=== PATIENT | male | born 1955 | race Caucasian/White ===

== ENCOUNTER → 2017-03-26 | Outpatient (CLI) | payer OTHER ==
[~2017-03-26] MED LIST: ACE325 PO; ALBU8.5H IH; AMOX-559 PO; CLON-327 PO; DOCO1CAP17; DOCU-416 PO; DUTA0.5C14 PO; FESO8PT PO; FURO20TA19 PO; IBU200 PO; IBUP-56 PO; IBUP600T22; LORA10CA3 PO; LOVAZA1PT GT; LOVAZA1PT PO; MECL-81 PO; MELA5TAB6 PO; METF-410; METFORMIN PO; MOMR; MOMR ENA; MULT-820 PO; OLME40TA3 PO; OMEG-11 PO; OXYB15TA17 PO; OXYC-865 PO; POTA10CA40 PO; PRED20TA6; ROS10 PO; ROSU5TAB8; SITA100T PO; TAMS0.4C25 PO; TAMS0.4C70 PO
== END ==
LOC: LAB 09:13
PROVIDERS: ATTEND Nurse Practitioner Family
DX: D75.1 Secondary polycythemia (principal)
CPT/HCPCS: 36415; 85014

== ENCOUNTER 2017-04-21 08:15 | Outpatient (RCR) | payer OTHER ==
--- NOTE | 2017-02-09 12:57 | PT INITIAL EVALUATION ---
MEDICAL DIAGNOSIS: Left TKA TREATMENT DIAGNOSIS: Left TKA DATE OF ONSET: 02/04/17 SUBJECTIVE: Pt is a 61 year-old male presenting to physical therapy s/p recent L TKA performed on 02/04/17. Pt reports that following the surgery he has had no complications. Pt reports that the pain medications made him feel groggy so he is now managing pain with Tylenol and Advil ans well as ice and elevation. Pt reports that his pain is currently rated at 6/10 and is best around 5/10 and worst at 10/10. Pt reports most of his pain is described as tightness from the swelling. Pt performs his HEP regularly and has his CPM set at 10-0-90 degrees. REHAB PROBLEM LIST: Increased Pain Decreased ROM Impaired Bed Mobility Decreased Strength Impaired Transfers Decreased Endurance Decreased Balance Decreased Function Decreased ADL's Decreased Mobility Decreased Gait PREVIOUS MEDICAL HISTORY: See EMR OCCUPATION: Pt works at an [employer]. OBJECTIVE: L leg is swollen throughout and pt is wearing B compression stockings. Pt has bruising in the posterior aspect of the thigh and knee. Incision appears to be healing nicely without any redness or discharge. ROM: Knee ROM (ext-flex): L 6-87 degrees, R 2-0-140 degrees Strength: Pt is able to perform SLR with a 10 degree lag on the L LE. Gait: Pt ambulates without use of AD with good heel strike and push off and full WB on L LE. ASSESSMENT: Pt shows signs and symptoms consistent with s/p L TKA. Physical therapy is indicated to improve knee functional mobility and strength to correct the above listed deficits and allow pt to return to prior level of function. Short Term Goals In 3 weeks pt will improve L knee ROM from 0-140 or equal to that of the contralateral limb for improved functional ability to perform ADL's. In 6 weeks pt will improve functional strength of L LE to equal that of the R LE for improved functional ability to perform ADL's. In 6 weeks pt will decrease pain to 1/10 or less with ADL's for improved function. In 6 weeks pt will be able to ambulate 6 laps around the track without use of AD with good functional gait mechanics and no compensations or increase in pain. Patient's Goals Pt reports that his goal is to start walking regularly again and get back to lifting and strengthening. PLAN: Patient to be seen for Manual Therapy/STM/MET Strengthening/condition Ice/Heat Range of Motion Ultrasound Stretching Iontophoresis Neuromuscular Re-ed Closed Chain Program Electrical Stim Posture/Body mechanics Gait Trg/Balance Trg Home Exercise Program Mech./Manual Traction Therapeutic Activities 3x/Week for 6 Weeks If you have any questions, comments, or concerns about this report or plan, please contact me at . Thank you, Mariaelena Jessica, PT, DPT, CLT MTDD
--- NOTE | 2017-03-04 10:13 | PT PLAN OF CARE ---
Physician: Jordan Almeida MD Patient is being seen: 3x/Week Therapist: Mariaelena Jessica, PT, DPT, CLT Medical Diagnosis: Left TKA Treatment Diagnosis: Left TKA Date of Onset: 02/04/17 Date of Initial Evaluation: 02/08/17 Date patient was last seen: 03/03/17 Number of treatments: 10 Number of cancellations/No shows: 0 INTERVENTIONS: Manual Therapy/STM/MET Strengthening/condition Ice/Heat Range of Motion Ultrasound Stretching Iontophoresis Neuromuscular Re-ed Closed Chain Program Electrical Stim Posture/Body mechanics Gait Trg/Balance Trg Home Exercise Program Mech./Manual Traction Therapeutic Activities GOALS: In 3 weeks pt will improve L knee ROM from 0-140 or equal to that of the contralateral limb for improved functional ability to perform ADL's. In Progress In 6 weeks pt will improve functional strength of L LE to equal that of the R LE for improved functional ability to perform ADL's. In Progress In 6 weeks pt will decrease pain to 1/10 or less with ADL's for improved function. In Progress In 6 weeks pt will be able to ambulate 6 laps around the track without use of AD with good functional gait mechanics and no compensations or increase in pain. In Progress PATIENT'S GOAL: Pt reports that his goal is to start walking regularly again and get back to lifting and strengthening. Status of Patient's Goals: In Progress Patient Compliance: Excellent Prognosis: Reasons for continuing therapy: Ruben continues to show gains in ROM and strength. Pt ROM is near equal to that of the contralateral side limited likely by lingering swelling and tightness across the knee. Incision is well healed with min-moderate adhesions throughout limiting mobility. Pt to progress to strengthening at this time to further improve function and soft tissue mobility. OBJECTIVE: L leg has mild swelling around the knee. Incision appears to be healing nicely without any redness or discharge and min-mod adhesions. ROM: Knee ROM (ext-flex): L 0-130 degrees, R 2-0-140 degrees Strength: LE MMT: Hip: flexion: L 4-/5, R 4+/5, ext: L 4+/5, R 5/5, Abd/Add: B /. Knee: flexion/ext: L 3+/5, R 5/5. Ankle: PF/DF: B /5 Pt is able to perform SLR with a 0 degree lag on the L LE. Gait: Pt ambulates without use of AD with good heel strike and push off and full WB on L LE. If you have any questions, comments, or concerns about this report or plan, please contact me at . Thank you, Mariaelena Jessica, PT, DPT, CLT MTDD
--- NOTE | 2017-04-06 10:07 | PT PLAN OF CARE ---
Physician: Jordan Almeida MD Patient is being seen: [g OPPT.PTF] Therapist: Mariaelena Jessica, PT, DPT, CLT Medical Diagnosis: Left TKA Treatment Diagnosis: Left TKA Date of Onset: 02/04/17 Date of Initial Evaluation: 02/08/17 Date patient was last seen: 04/05/17 Number of treatments: 21 Number of cancellations/No shows: 0 INTERVENTIONS: Manual Therapy/STM/MET Strengthening/condition Ice/Heat Range of Motion Ultrasound Stretching Iontophoresis Neuromuscular Re-ed Closed Chain Program Electrical Stim Posture/Body mechanics Gait Trg/Balance Trg Home Exercise Program Mech./Manual Traction Therapeutic Activities GOALS: In 3 weeks pt will improve L knee ROM from 0-140 or equal to that of the contralateral limb for improved functional ability to perform ADL's. In Progress In 6 weeks pt will improve functional strength of L LE to equal that of the R LE for improved functional ability to perform ADL's. In Progress In 6 weeks pt will decrease pain to 1/10 or less with ADL's for improved function. In Progress In 6 weeks pt will be able to ambulate 6 laps around the track without use of AD with good functional gait mechanics and no compensations or increase in pain. In Progress PATIENT'S GOAL: Pt reports that his goal is to start walking regularly again and get back to lifting and strengthening. Status of Patient's Goals: In Progress Patient Compliance: Excellent Prognosis: Reasons for continuing therapy: Ruben shows good progression with functional strength while maintaining knee mobility. Current pt limitations are secondary to pain from hamstring spasms and adhesions in the posterior knee. In addition pt has further progress to make for knee strength and endurance with ADL's. OBJECTIVE: Incision is well healed with minimal adhesions. ROM: Knee ROM (ext-flex): L 3-0-135 degrees, R 2-0-140 degrees Strength: LE MMT: Hip: flexion: L 4+/5, R 5/5, ext: B 5/5, Abd/Add: B 5/5. Knee : flexion/ext: L 4/5, R 5/5. Ankle: PF/DF: B 5/5 Pt is able to perform SLR with a 0 degree lag on the L LE. Gait: Pt ambulates without use of AD with good heel strike and push off and full WB on L LE. Outcome Measures: FOTO Knee: 30/50 If you have any questions, comments, or concerns about this report or plan, please contact me at . Thank you, Mariaelena Jessica, PT, DPT, CLT EVITAD
--- NOTE | 2017-04-23 15:59 | PT PLAN OF CARE ---
Physician: Jordan Almeida MD Patient is being seen: 2-3x/Week Therapist: Mariaelena Jessica, PT, DPT, CLT Medical Diagnosis: Left TKA Treatment Diagnosis: Left TKA Date of Onset: 02/04/17 Date of Initial Evaluation: 02/08/17 Date patient was last seen: 04/21/17 Number of treatments: 25 Number of cancellations/No shows: 2 INTERVENTIONS: Manual Therapy/STM/MET Strengthening/condition Ice/Heat Range of Motion Ultrasound Stretching Iontophoresis Neuromuscular Re-ed Closed Chain Program Electrical Stim Posture/Body mechanics Gait Trg/Balance Trg Home Exercise Program Mech./Manual Traction Therapeutic Activities GOALS: In 3 weeks pt will improve L knee ROM from 0-140 or equal to that of the contralateral limb for improved functional ability to perform ADL's. Not MET- Limited secondary to popliteal cyst for terminal flexion In 6 weeks pt will improve functional strength of L LE to equal that of the R LE for improved functional ability to perform ADL's. Not MET In 6 weeks pt will decrease pain to 1/10 or less with ADL's for improved function. Not MET -Limited secondary to popliteal cyst In 6 weeks pt will be able to ambulate 6 laps around the track without use of AD with good functional gait mechanics and no compensations or increase in pain. MET PATIENT'S GOAL: Pt reports that his goal is to start walking regularly again and get back to lifting and strengthening. Status of Patient's Goals: 03/18 functional goals MET Patient Compliance: Excellent Prognosis: Good Reasons for discharge from physical therapy: Ruben is to discharge from physical therapy at this time secondary to limitations for insurance coverage. At the time of discharge pt showed good progress with strengthening and ROM limited only by the development of a popliteal cyst which created inflammation and irritation with end range motions, and increased loading. Upon discharge pt is to continue with progressive strengthening independently to return to prior level of function. OBJECTIVE: Incision is well healed with minimal adhesions. ROM: Knee ROM (ext-flex): L 3-0-135 degrees, R 2-0-140 degrees Strength: LE MMT: Hip: flexion: B 5/5, ext: B 5/5, Abd/Add: B 5/5. Knee: ext: L 5/5, R 5/5, flexion: L 4/5. Ankle: PF/DF: B 5/5 Pt is able to perform SLR with a 0 degree lag on the L LE. Gait: Pt ambulates without use of AD with good heel strike and push off and full WB on L LE. Outcome Measures: FOTO Knee: If you have any questions, comments, or concerns about this report or plan, please contact me at . Thank you, Mariaelena Jessica, PT, DPT, CLT MTDD
== END 2017-04-21 18:00 | disposition home or self-care (01) ==
LOC: PT 08:15
PROVIDERS: ATTEND Orthopaedic Surgery
DX: Z47.1 Aftercare following joint replacement surgery (principal); Z96.652 Presence of left artificial knee joint
CPT/HCPCS: 97161

== ENCOUNTER → 2017-04-30 | Outpatient (CLI) | payer OTHER | LOC: LAB 08:11 | PROVIDERS: ATTEND Nurse Practitioner Family | DX: D75.1 Secondary polycythemia (principal) | CPT/HCPCS: 36415; 85014 ==

== ENCOUNTER → 2017-07-01 | Outpatient (CLI) | payer OTHER | LOC: LAB 07:44 | PROVIDERS: ATTEND Nurse Practitioner Family | DX: D75.1 Secondary polycythemia (principal) | CPT/HCPCS: 36415; 85014 ==

== ENCOUNTER → 2017-08-16 | Outpatient (CLI) | payer OTHER ==
[~2017-08-16] MED LIST changes: -METF-410; +METF-411
== END ==
LOC: LAB 10:12
PROVIDERS: ATTEND Nurse Practitioner Family
DX: D75.1 Secondary polycythemia (principal)
CPT/HCPCS: 36415; 85014

== ENCOUNTER → 2017-10-25 | Outpatient (CLI) | payer OTHER | LOC: LAB 13:00 | PROVIDERS: ATTEND Nurse Practitioner Family | DX: D75.1 Secondary polycythemia (principal) | CPT/HCPCS: 36415; 85014 ==

== ENCOUNTER → 2017-12-16 | Outpatient (CLI) | payer OTHER ==
[~2017-12-16] MED LIST changes: -METF-411; +METF-450
== END ==
LOC: LAB 10:27
PROVIDERS: ATTEND Nurse Practitioner Family
DX: R71.8 Other abnormality of red blood cells (principal); E29.1 Testicular hypofunction
CPT/HCPCS: 36415; 82670; 84270; 84403; 85027

== ENCOUNTER 2017-12-24 10:39 | Outpatient (RCR) | payer OTHER ==
[2017-12-16 11:23] VITALS: BP 124/81
[2017-12-24 10:41] VITALS: BP 140/92
[2017-12-24 10:53] VITALS: BP 150/92
== END 2018-02-09 11:00 | disposition home or self-care (01) ==
LOC: SPU 10:39
PROVIDERS: ATTEND Internal Medicine Hematology
DX: D75.1 Secondary polycythemia (principal); I10 Essential (primary) hypertension
CPT/HCPCS: 99195

== ENCOUNTER → 2017-12-24 | Outpatient (CLI) | payer OTHER | LOC: LAB 09:57 | PROVIDERS: ATTEND Internal Medicine Hematology | DX: D75.1 Secondary polycythemia (principal) | CPT/HCPCS: 36415; 85014 ==

== ENCOUNTER → 2018-01-12 | Outpatient (CLI) | payer OTHER | LOC: LAB 08:35 | PROVIDERS: ATTEND Nurse Practitioner Family | DX: D75.1 Secondary polycythemia (principal) | CPT/HCPCS: 36415; 85014 ==

== ENCOUNTER → 2018-01-14 | Outpatient (CLI) | payer OTHER ==
[2018-01-14 08:25] LABS: PLATELET COUNT, AUTOMATED 207 K/uL (150-450)
[2018-01-14 08:28] VITALS: BP 138/80
== END ==
LOC: SPU 07:42
PROVIDERS: ATTEND Nurse Practitioner Family
DX: D75.1 Secondary polycythemia (principal); I10 Essential (primary) hypertension
CPT/HCPCS: 36415; 82728; 85025

== ENCOUNTER → 2018-02-18 | Outpatient (CLI) | payer OTHER | LOC: LAB 09:40 | PROVIDERS: ATTEND Urology | DX: R33.8 Other retention of urine (principal); Z87.440 Personal history of urinary (tract) infections; N40.1 Benign prostatic hyperplasia with lower urinary tract symptoms | CPT/HCPCS: 36415; 84153 ==

== ENCOUNTER → 2018-03-03 | Outpatient (CLI) | payer OTHER ==
[2018-03-03 09:05] VITALS: BP 129/79
[2018-03-03 09:29] VITALS: BP 124/83
== END ==
LOC: SPU 08:49
PROVIDERS: ATTEND Nurse Practitioner Family
DX: D75.1 Secondary polycythemia (principal); I10 Essential (primary) hypertension
CPT/HCPCS: 99195

== ENCOUNTER → 2018-03-03 | Outpatient (CLI) | payer OTHER | LOC: LAB 08:19 | PROVIDERS: ATTEND Nurse Practitioner Family | DX: D75.1 Secondary polycythemia (principal) | CPT/HCPCS: 36415; 82728; 85027 ==

== ENCOUNTER → 2018-03-11 | Outpatient (CLI) | payer OTHER | LOC: LAB 14:02 | PROVIDERS: ATTEND Urology | DX: R97.20 Elevated prostate specific antigen [PSA] (principal) | CPT/HCPCS: 84153 ==

== ENCOUNTER → 2018-03-11 | Outpatient (CLI) | payer OTHER | LOC: LAB 14:01 | PROVIDERS: ATTEND Nurse Practitioner Family | DX: D75.1 Secondary polycythemia (principal) | CPT/HCPCS: 36415; 82728; 85027 ==

== ENCOUNTER → 2018-03-16 | Outpatient (CLI) | payer OTHER | LOC: SPU 07:16 | PROVIDERS: ATTEND Nurse Practitioner Family | DX: Z02.9 Encounter for administrative examinations, unspecified (principal) ==

== ENCOUNTER 2018-03-25 09:00 | Outpatient (RCR) | payer OTHER ==
[2018-03-16 11:46] VITALS: BP 132/75
[~2018-03-25 09:00] MED LIST changes: +ROSU10TA PO
[2018-03-25 09:13] VITALS: BP 138/77
[2018-03-25 09:31] LABS: PLATELET COUNT, AUTOMATED 223 K/uL (150-450)
[2018-03-25 09:55] VITALS: BP 127/82
== END 2018-06-14 ==
LOC: SPU 09:00
PROVIDERS: ATTEND Nurse Practitioner Family
DX: D75.1 Secondary polycythemia (principal)
CPT/HCPCS: 82728; 85025; 99195

== ENCOUNTER → 2018-05-18 | Outpatient (CLI) | payer OTHER ==
[~2018-05-18] MED LIST changes: -ROSU10TA PO
== END ==
LOC: LAB 08:11
PROVIDERS: ATTEND Nurse Practitioner Family
DX: E29.1 Testicular hypofunction (principal); R79.89 Other specified abnormal findings of blood chemistry
CPT/HCPCS: 36415; 82670; 84270; 84403

== ENCOUNTER → 2018-07-22 | Outpatient (CLI) | payer OTHER ==
[~2018-07-22] MED LIST changes: +ROSU10TA PO
== END ==
LOC: LAB 09:48
PROVIDERS: ATTEND Nurse Practitioner Family
DX: D75.1 Secondary polycythemia (principal)
CPT/HCPCS: 36415; 82728; 85027

== ENCOUNTER → 2018-07-26 | Outpatient (CLI) | payer OTHER ==
--- NOTE | 2018-07-26 14:08 | RADIOLOGY IMAGING REPORT ---
FACILITY: [facility] PATIENT NAME: Jennie Cloud : 1955 MR: [id number] V: [id number] EXAM DATE: ORDERING PHYSICIAN: SHIRLENE ROLLINS TECHNOLOGIST: Location: [facility] Patient: Jennie Cloud : 1955 Visit/Account:[id number] Date of Sevice: 07/26/2018 Study: XR ORBITS Indication: MRI screening Comparison study: February 01, 2013 Findings: A single view of the orbits demonstrates no evidence of metallic foreign body. No significant bony abnormality is identified. IMPRESSION: No evidence of metallic foreign body overlying the orbits. Report Dictated By: Manish David at 07/26/2018 2:03 PM Report E-Signed By: Manish David at 07/26/2018 2:04 PM WSN:[id number]
--- NOTE | 2018-07-26 15:11 | RADIOLOGY IMAGING REPORT ---
[facility] PATIENT NAME: Jennie Cloud : 1955 MR: [id number] V: [id number] EXAM DATE: [id number] ORDERING PHYSICIAN: SHIRLENE ROLLINS TECHNOLOGIST: Location[place] [facility] [place] Patient: Jennie Cloud : 1955 Visit/Account:[id number] Date of Sevice: 07/26/2018 EXAMINATION: MR SPINE LUMBAR W/O CON INDICATION: Back pain COMPARISON: Abdomen and pelvis CT April 24, 2016 TECHNIQUE: Multiplane MR imaging was performed through the lumbar spine without contrast. FINDINGS: Vertebral bodies and posterior elements: Normal vertebral body heights. Posterior fusion hardware ext ends from L1 through L3 as before. L4 and L5 laminectomy defects as before. Conus position/signal: Normal Marrow signal: Minimal degenerative edema surrounds the L5-S1 disc space. Extraspinal structures including psoas muscles/paraspinal soft tissues: Normal T12-L1: Mild unchanged disc space degeneration. Small disc protrusion and ligamentum flavum thickenin g. Mild canal narrowing. Mild bilateral foraminal narrowing. L1-2: Severe unchanged disc space degeneration. No disc protrusion or canal narrowing. Normal foramen . L2-3: Unchanged disc space prosthesis. No disc protrusion or canal narrowing. Mild bilateral foramina l narrowing. L3-4: Unchanged disc space prosthesis. No disc protrusion or canal narrowing. Mild bilateral foramina l narrowing. L4-5: Unchanged disc space prosthesis. No disc protrusion or canal narrowing. Moderate right greater than left foraminal narrowing. L5-S1: Moderate disc space degeneration has progressed. Small disc protrusion. Moderate facet arthrop athy has not definitively changed. No canal narrowing. Severe bilateral foraminal narrowing. IMPRESSION: 1. Unchanged posterior fusion hardware at L1-L3 and unchanged multilevel disc space prostheses. 2. Mild T12-L1 canal narrowing secondary to a small disc protrusion and ligamentum flavum thickening. 3. Multilevel foraminal narrowing most pronounced at L5-S1, see level by level comments above. 4. Moderate L5-S1 disc space degeneration has progressed compared to CT allowing for technique differ ences. 5. Moderate unchanged L5-S1 facet arthropathy. Report Dictated By: Bertram Basurto MD at 07/26/2018 2:58 PM Report E-Signed By: Bertram Basurto MD at 07/26/2018 3:05 PM WSN:[email or web address]
== END ==
LOC: MRI 13:01
PROVIDERS: ATTEND Neurological Surgery
DX: M47.894 Other spondylosis, thoracic region (principal); Z98.890 Other specified postprocedural states
CPT/HCPCS: 70030; 72148

== ENCOUNTER → 2018-07-29 | Outpatient (CLI) | payer OTHER ==
--- NOTE | 2018-07-29 13:16 | RADIOLOGY IMAGING REPORT ---
FACILITY: [facility] [place] PATIENT NAME: Jennie Cloud : 1955 MR: [id number] V: [id number] EXAM DATE: ORDERING PHYSICIAN: SHIRLENE ROLLINS TECHNOLOGIST: Location: [facility] - [place] Patient: Jennie Cloud : 1955 Visit/Account:[id number] Date of Sevice: 07/29/2018 Exam type: L-SPINE COMPLETE W/BENDING History: Right-sided sciatica, lumbosacral instability, preop fusion Comparison: MR lumbar spine July 26, 2018. Findings: An AP view of the lumbar spine in addition to standing flexion, neutral and extension lateral views w ere submitted. Again noted are postsurgical changes from posterior lumbar interbody fusion at L1, L2 and L3. There is straightening of the normal lumbar lordosis. There is moderate disc space narrowi ng at T12-L1 marked severe disc space narrowing from L1 to L5 and moderate disc space narrowing at L5 -S1. No evidence of acute fractures or subluxations. IMPRESSION: 1. Postsurgical changes from L1 to L3 as described Extensive spondylotic changes but the entire lumbar spine No evidence of acute fractures or subluxations although there is straightening of the normal lumbar l ordosis Report Dictated By: Desi Louie MD at 07/29/2018 1:08 PM Report E-Signed By: Desi Louie MD at 07/29/2018 1:12 PM WSN:[id number]
== END ==
LOC: RAD 08:16
PROVIDERS: ATTEND Neurological Surgery
DX: M47.896 Other spondylosis, lumbar region (principal); Z98.890 Other specified postprocedural states
CPT/HCPCS: 72114

== ENCOUNTER → 2018-09-09 | Outpatient (CLI) | payer OTHER ==
[~2018-09-09] MED LIST changes: +MELA5TAB3 PO; -MELA5TAB6 PO
[2018-09-09 09:59] LABS: PLATELET COUNT, AUTOMATED 307 K/uL (150-450)
== END ==
LOC: LAB 09:35
PROVIDERS: ATTEND Nurse Practitioner Family
DX: M25.50 Pain in unspecified joint (principal); R25.2 Cramp and spasm
CPT/HCPCS: 36415; 82040; 82247; 82310; 82374; 82435; 82550; 82565; 82728; 82947; 84075; 84132; 84155; 84295; 84450; 84460; 84520; 85025; 85651; 86038; 86140; 86430

== ENCOUNTER → 2018-09-27 | Outpatient (CLI) | payer OTHER ==
[~2018-09-27] MED LIST changes: +ASPI-1471 PO; +CEPH500T7 PO; +DOXY-179 PO; +FINA5TAB67 PO; +SULF-198 PO
== END ==
LOC: LAB 14:51
PROVIDERS: ATTEND Neurological Surgery
DX: Z02.9 Encounter for administrative examinations, unspecified (principal)
CPT/HCPCS: 36415; 85027; 86140

== ENCOUNTER → 2018-09-30 | Outpatient (CLI) | payer OTHER ==
--- NOTE | 2018-09-30 15:45 | RADIOLOGY IMAGING REPORT ---
FACILITY: [facility] - [place] PATIENT NAME: Jennie Cloud : 1955 MR: [id number] V: [id number] EXAM DATE: ORDERING PHYSICIAN: SHIRLENE ROLLINS TECHNOLOGIST: Location: [facility] - [place] Patient: Jennie Cloud : 1955 Visit/Account:[id number] Date of Sevice: 09/30/2018 EXAMINATION: MRI lumbar spine without IV contrast HISTORY: Severe pain post fusion COMPARISON: 07/26/2018 TECHNIQUE: Multi-planar, multi-sequence lumbar spine MRI was performed without intravenous contrast administration. FINDINGS: As on the prior study there is posterior fusion hardware at the L1, L2 and L3 levels. There is no ad ditional fusion hardware at L5 and S1. Interbody fusion devices are present at L2-3, L3-4 and L4-5 a nd there is osseous fusion at these levels. There has also been recent discectomy and interbody fusi on device placement at L5-S1, without evidence of bony fusion. Small volume of fluid along the poste rior elements at the L3-S1 levels is likely postoperative. Alignment: Normal. Vertebral marrow signal: Negative. Distal thoracic cord: Negative. Conus: negative, terminates at T12-L1 Cauda equina: Negative. Paravertebral soft tissues: Negative. Visualized abdominal and pelvic structures: Negative. Disc Spaces: Lower thoracic spine: Normal. Multilevel degenerative changes are stable. IMPRESSION: Demonstration of fusion from L1 through L3 with new discectomy and posterior fusion of L 5-S1. Multilevel degenerative changes are otherwise stable. Report Dictated By: DAMI NGUYEN at 09/30/2018 2:54 PM Report E-Signed By: DAMI NGUYEN at 09/30/2018 3:38 PM WSN:[id number]
== END ==
LOC: MRI 03:31
PROVIDERS: ATTEND Neurological Surgery
DX: M54.31 Sciatica, right side (principal); Z48.89 Encounter for other specified surgical aftercare
CPT/HCPCS: 72148

== ENCOUNTER 2018-10-01 09:54 | Emergency (ER) | payer OTHER ==
[~2018-10-01 09:54] MED LIST changes: -ASPI-1471 PO; -CEPH500T7 PO; -DOXY-179 PO; -FINA5TAB67 PO; -SULF-198 PO
[2018-10-01 09:58] VITALS: BP 139/81
--- NOTE | 2018-10-01 10:00 | ER Report ---
History and Physical Time Seen By MD: 09:56 HPI/ROS CHIEF COMPLAINT: Incision check HISTORY OF PRESENT ILLNESS: Patient is a 62-year-old male here with complaints of lower back pain status post lumbar spinal fusion and concern for infection of the incision site. Patient is reportedly being treated with Keflex and Bactrim which was extended by the patient's neurosurgeon due to concern for incision site infection. MRI imaging was completed yesterday and showed no acute signs of infection or osteomyelitis or cord impingement. Patient is afebrile hemodynamically stable at time of evaluation. REVIEW OF SYSTEMS: Constitutional: No fever, no chills. Gastrointestinal: No abdominal pain, no vomiting. Genitourinary: No hematuria. Musculoskeletal: Lower lumbar back pain Skin: Mild erythema surrounding a well-healed incision site Neurological: No headache. Patient is neurovascularly intact Allergies: Coded Allergies: atorvastatin (Verified Allergy, Unknown, 10/01/18) Home Meds Reported Medications Cephalexin 500 Mg Tab (KEFLEX 500 MG TAB) 500 Mg Tablet, 500 MG PO Q6H, #28 TAB 10/01/18 Sulfamethoxazole/Trimet 800-160 Mg Tab (BACTRIM DS TABLET) 1 Each Tablet, 1 TAB PO Q12H, TAB 10/01/18 Aspirin (ASPIR 81) 81 Mg Tablet.dr, 81 MG PO QDAY, TAB 10/01/18 Finasteride (FINASTERIDE) 5 Mg Tablet, 5 MG PO QDAY 10/01/18 Olmesartan Medoxomil (Olmesartan Medoxomil) 40 Mg Tablet, 40 MG PO QDAY 12/31/16 Albuterol Sulfate 90 Mcg/Act (PROAIR HFA 90 MCG/ACT) 8.5 Gm Hfa.aer.ad, 1-2 PUFF IH Q4H, INHALER 12/31/16 Mometasone Furoate (NASONEX) 17 Gm Fellows, 17 GM JOSE ROBERTO PRN, SPRAY 12/31/16 [place] 3 Polyunsat Fatty Acids (LOVAZA) 1 Gm Cap, 1 GM GT QID, CAP 12/31/16 Tamsulosin Hcl (FLOMAX) 0.4 Mg Cap.er.24h, 0.4 MG PO DAILY, CAP 12/31/16 Loratadine (CLARITIN) 10 Mg Capsule, 10 MG PO DAILY, CAPSULE 12/31/16 Ibuprofen (IBUPROFEN) 200 Mg Tablet, 3 TAB PO Q6H PRN for PAIN/HEADACHE 02/22/15 Melatonin (MELATONIN) 5 Mg Tablet, 5 MG PO HS 02/22/15 Sitagliptin Phosphate (JANUVIA) 100 Mg Tablet, 100 MG PO QDAY 02/22/15 Rosuvastatin Calcium (CRESTOR) 10 Mg Tab, 10 MG PO QDAY, #5 TAB 02/22/15 Multivitamins (Multivitamin) 1 Tab Tablet, 1 TAB PO QDAY, #1 0 Refills 05/22/10 Hx Smoking: No Smoking Status: Never Smoker Exposure to Second Hand Smoke?: No Hx Substance Use Disorder: No Hx Alcohol Use: Yes Constitutional Vital Sign - Last 24 Hours 10/01/18 09:58 Temp 98.6 Pulse 100 Resp 20 B/P (MAP) 139/81 Pulse Ox 92 Physical Exam General Appearance: The patient is alert, has no immediate need for airway protection and no signs of toxicity. No acute distress Gastrointestinal: Abdomen is soft and non tender, no masses, bowel sounds normal. Neurological: No focal neurological deficits Skin: Mild erythema surrounding a lower lumbar fusion incision site Musculoskeletal: Neck is supple non tender. Extremities are nontender, nonswollen and have full range of motion. DIFFERENTIAL DIAGNOSIS: After history and physical exam differential diagnosis was considered for seroma, abscess, cellulitis, osteomyelitis Medical Decision Making ED Course/Re-evaluation ED Course Patient is a 62-year-old male here with complaints of lower back pain, concern for incision site infection and abscess. MRI imaging completed yesterday showed no acute signs of fluid collection, osteomyelitis, cord impingement. Patient has been on a course of Keflex and Bactrim which was extended by the patient's neurosurgeon. I discussed the imaging findings with the patient and decision was made to switch patient to doxycycline seven-day course and close follow-up with neurosurgery. Patient is afebrile, hemodynamically stable throughout course. Return precautions provided. Decision to Disposition Date: Oct 01, 2018 Decision to Disposition Time: 10:39 Depart Departure Latest Vital Signs Vital Signs Date Time Temp Pulse Resp B/P (MAP) Pulse Ox O2 Delivery O2 Flow Rate FiO2 10/01/18 09:58 98.6 100 20 139/81 92 Impression: Primary Impression: Superficial incisional surgical site infection Condition: Improved Disposition: HOME OR SELF-CARE Referrals: JAIDEN,GABO THREADER (PCP) New Scripts Doxycycline Hyclate (DOXYCYCLINE HYCLATE) 100 Mg Tablet 100 MG PO BID for 7 Days, #14 TAB Prov: SLY PAPPAS DO 10/01/18 Patient Instructions: Surgical Site Infections (DC) Additional Instructions: Please discontinue Keflex and Bactrim and switched to doxycycline 1 tablet twice daily for 7 days. Please avoid prolonged exposure to sunlight as this medication can make you photosensitive. Please follow-up with your neurosurgeon on Wednesday in order to discuss your lower back pain. Please return promptly if you develop worsening rash, drainage, fevers or chills, worsening pain, bowel or bladder incontinence, numbness. SLY PAPPAS DO Oct 01, 2018 10:00
[2018-10-01] MEDS ORDERED: CEPH500T7 PO (10:19)
[2018-10-01] MEDS ORDERED: ASPI-1471 PO (10:19)
[2018-10-01] MEDS ORDERED: FINA5TAB67 PO (10:19)
[2018-10-01] MEDS ORDERED: SULF-198 PO (10:19)
[2018-10-01] MEDS ORDERED: DOXY-179 PO (10:44)
== END 2018-10-01 10:49 | disposition home or self-care (01) ==
LOC: ER 10:03
DX: T81.49XA Infection following a procedure, other surgical site, initial encounter (principal)
CPT/HCPCS: 99281

== ENCOUNTER → 2018-10-13 | Outpatient (CLI) | payer OTHER ==
[~2018-10-13] MED LIST changes: +ASPI-1471 PO; +CEPH500T7 PO; +DOXY-179 PO; +FINA5TAB67 PO; +SULF-198 PO
--- NOTE | 2018-10-13 15:17 | RADIOLOGY IMAGING REPORT ---
FACILITY: [facility] PATIENT NAME: Jennie Cloud : 1955 MR: [id number] V: [id number] EXAM DATE: ORDERING PHYSICIAN: LINDA GUY TECHNOLOGIST: Location: [facility] Patient: Jennie Cloud : 1955 Visit/Account:[id number] Date of Sevice: 10/13/2018 MR SPINE THORACIC W/O CON INDICATION: Back pain COMPARISON: Cervical spine MR 02/28/2016. TECHNIQUE: Multiplane noncontrast MR imaging performed through the thoracic spine. FINDINGS: Normal vertebral body heights. Mild convexity left upper thoracic scoliosis. Benign T8 vertebral body hemangioma. Otherwise unremarkable marrow. Normal cord signal. Incompletely characterized/imaged at least moderate to potentially severe C5-6 and C6-7 canal narrowi ng has not definitively changed compared to prior cervical spine MR. Multilevel anterior endplate spurring. Severe T10-11 disc space degeneration. Mild multilevel additio nal disc space degeneration. Mild to moderate T9-T10 canal narrowing secondary to minimal disc protrusion, congenitally narrowed c anal, facet arthropathy and ligamentum flavum thickening. Moderate T10-11 canal narrowing secondary to small disc protrusion, right greater than left ligamentu m flavum thickening, congenitally narrowed canal and facet arthropathy. Moderate T11-12 and T12-L1 ca nal narrowing secondary to similar findings. The visible extraspinal structures are normal. Mild bilateral T1-T2 foraminal narrowing. Mild right T2-3 foraminal narrowing. Mild right T3-4 forami nal narrowing. Mild to moderate right T9-10 and mild left T9-10 foraminal narrowing. Moderate right g reater than left T10-11 foraminal narrowing. Mild bilateral T12-L1 foraminal narrowing. IMPRESSION: 1. Mild to moderate T9-10 and moderate T10-11 through T12-L1 canal narrowing secondary to the constel lation of chronic findings described above. 2. Multilevel foraminal narrowing most pronounced at T10-11 where there is moderate foraminal narrowi ng. 3. Multilevel disc space degeneration most pronounced at T10-11 where there is severe disc space dege neration. Report Dictated By: Bertram Basurto MD at 10/13/2018 2:57 PM Report E-Signed By: Bertram Basurto MD at 10/13/2018 3:09 PM WSN:[email or web address]
== END ==
LOC: MRI 00:39
PROVIDERS: ATTEND Anesthesiology Pain Medicine
DX: M48.04 Spinal stenosis, thoracic region (principal); M51.34 Other intervertebral disc degeneration, thoracic region
CPT/HCPCS: 72146